=== PATIENT | male | born 1970 | race Caucasian/White ===

== ENCOUNTER 2025-07-20 12:27 | Emergency (ER) | payer MEDICARE ==
[~2025-07-20] VITALS: Ht 167.6 cm; Wt 72.7 kg
[~2025-07-20 12:27] MED LIST: ACET-2615 PO; ALPR-623 PO; OMEP20TA23 PO; ZOLP5TAB2 PO
[2025-07-20 12:32] VITALS: TEMP 97.8
--- NOTE | 2025-07-20 13:09 | RADIOLOGY REPORT ---
CHEST RADIOGRAPH Indication: SOB Technique: Single frontal view of the chest was obtained Comparison: None FINDINGS: Lines and Tubes: None Lungs: No focal consolidation. Pleura: No effusion. No pneumothorax. Cardiomediastinal contours: Unremarkable Bones: No acute osseous abnormality. IMPRESSION: 1. No acute cardiopulmonary disease.
[2025-07-20 13:34] LABS: MEAN PLATELET VOLUME 7.6 FL (7.4-10.4); RED CELL DISTRIBUTION WIDTH 14.1 % (11.5-14.5)
[2025-07-20 13:45] LABS: INR 1.0 INR
[2025-07-20 13:55] LABS: CREATININE 1.08 MG/DL (0.60-1.10); PRO BRAIN NATRIURETIC PEPTIDE < 30 PG/ML (0-125); TOTAL CARBON DIOXIDE 27.7 MMOL/L (24-32); eCRCL 69 ML/MIN; eGFR 71 ML/MIN
[2025-07-20 15:10] VITALS: BP 143/90; PULSE 70; RESP 18; O2SAT 98
--- NOTE | 2025-07-20 15:15 | Physician Documentation ---
History of Present Illness ~ Chief Complaint: Cough Stated Complaint: COUGH Time Seen by MD: 12:47 Primary Medical Doctor: ANNABEL LANGSTON HPI Is a very pleasant 54-year-old male that presents to the emergency department for evaluation of cough with mucus production. Reports he has had a productive cough for the last several days. Patient reports he has a history of pneumonia. He is concerned about developing pneumonia. Patient denies any shortness of breath she has a cough with productive green sputum. Patient denies fevers chills nausea vomiting diarrhea at this time. Medication Reconciliation Allergies: Coded Allergies: prochlorperazine (Verified Allergy, Unknown, 07/20/25) Scheduled Acetaminophen (Tylenol Extra Strength), 1 TAB PO Q8H, (Reported) Alprazolam* (Xanax*), 1 TAB PO QDAY PRN, (Reported) Omeprazole Magnesium (Prilosec Otc), 0.5 TAB PO DAILY, (Reported) Scheduled PRN Zolpidem Tartrate (Ambien), 5 MG PO HS PRN for sleep, (Reported) Past Medical History Past Medical History: *GI/HEPATOBILIARY* Past Surgical History: colectomy, other Alcohol Use: Occasionally Drug Use: none Lives with: Family Lives In: Home Occupation: disabled Review of Systems ROS As stated above in the HPI, otherwise all systems are reviewed and negative. Physical Exam Vital Signs: Temperature: 97.8, Source: Temporal, Heart Rate: 73, Respiratory Rate: 18, BP: 143/89, Pulse Oximetry: 97, Weight: 72.730 Oxygen Flow Rate: 0 Physical Exam VITALS: Reviewed and as above. GENERAL: Alert, no apparent distress. HEENT: Normocephalic, atraumatic, PERRL, EOMI, dry mucosa, no erythema RESPIRATORY: Lungs clear, normal breath sounds, no respiratory distress. CHEST: No accessory muscle use, no retractions CV: Regular rate, rhythm, no edema, no murmur, No: JVD GI: Soft, non-tender, bowels sounds present, no rebound, guarding, or rigidity BACK: No CVA tenderness, or swelling MUSCULOSKELETAL No deformities, no edema SKIN: Warm and dry, no rash NEURO: Oriented x4, No motor or sensory deficit PSYCH: Normal mood and affect, no agitation Progress Results/Orders Results/Orders Vital Signs 07/20/25 07/20/25 07/20/25 12:32 13:00 14:06 Temp 97.8 Pulse 94 73 Resp 18 18 18 B/P (MAP) 158/82 143/89 (107) Pulse Ox 98 97 O2 Flow Rate 0 Laboratory Tests Test 07/20/25 13:17 White Blood Count 8.0 Red Blood Count 5.41 Hemoglobin 15.3 Hematocrit 44.5 Mean Corpuscular Volume 82.3 Mean Corpuscular Hemoglobin 28.3 Mean Corpuscular Hemoglobin Concent 34.4 Red Cell Distribution Width 14.1 Platelet Count 226 Mean Platelet Volume 7.6 Neutrophils (%) (Auto) 72.5 Lymphocytes (%) (Auto) 20.3 L Monocytes (%) (Auto) 5.4 Eosinophils (%) (Auto) 1.1 Basophils (%) (Auto) 0.7 Neutrophils # (Auto) 5.8 Lymphocytes # (Auto) 1.6 Monocytes # (Auto) 0.4 Eosinophils # (Auto) 0.1 Basophils # (Auto) 0.1 CBC Comment Prothrombin Time 10.7 INR International Normalized Ratio 1.0 Coagulation Comments Sodium Level 139 Potassium Level 3.9 Chloride Level 104 Carbon Dioxide Level 27.7 Anion Gap 7 L Blood Urea Nitrogen 6 L Creatinine 1.08 Estimated GFR/1.73 m2 71 BUN/Creatinine Ratio 5.6 L Glucose Level 96 Calcium Level 8.8 Pro-B-Type Natriuretic Peptide < 30 Albumin 3.8 Chemistry Comments Medical Decision Making Additional information obtaine: other Findings Patient evaluated in the emergency department for [presenting complaint]. X-ray imaging was performed and is negative for any acute or concerning findings at this time. No evidence of fracture, dislocation, or other emergent pathology was identified. Clinical assessment, including history and physical examination, did not reveal any red flag symptoms or findings requiring further emergent intervention. The most dangerous conditions have been ruled out based on current evaluation and imaging. The patient is clinically stable for discharge. Diagnostic uncertainty was discussed with the patient, including the limitations of current testing and the possibility of evolving symptoms. The patient was advised to monitor for any new or worsening symptoms and to seek prompt medical attention if these occur. No additional urgent diagnostic tests are pending at this time. All results have been reviewed and communicated. Outpatient follow-up is recommended with the patient's primary care provider for ongoing management and reassessment as needed. Discharge instructions provided, including return precautions and follow-up recommendations. Disposition: Discharged home in stable condition. Differential Dx:Considerations: Include: Allergic rhinitis, Influenza, Otitis media, Peritonsillar abscess, Pharyngitis-Diphtheria, Pharyngitis-Streptoccal, Pharyngitis-Viral, Pneumonia, Pnuemonitis, Sinusitis, URI, Other Departure Disposition: HOME / SELF CARE / HOMELESS Impression: Primary Impression: Cough Condition: Stable Additional Instructions: You have been evaluated today, and your X-ray did not show any concerning findings. This means there is no sign of fracture, dislocation, or other serious injury at this time. What to expect: You may still have pain, swelling, or discomfort. These symptoms often improve with rest, ice, and [id number] pain medicine like acetaminophen or ibuprofen (follow package instructions unless told otherwise). Most minor injuries and pain get better with time and gentle movement. Avoid activities that make your pain worse. When to seek medical attention: If you develop new or worsening pain, swelling, redness, or warmth. If you cannot move the affected area, or if you notice numbness, tingling, or weakness. If you have fever, chills, or any other symptoms that concern you. Follow-up: Schedule a follow-up visit with your primary care provider or as directed. If your pain does not improve in the next 1-2 weeks, or if symptoms get worse, further evaluation may be needed. Sometimes, additional imaging (like MRI or CT) is recommended if symptoms persist despite a normal X-ray. Other instructions: Take all medications as prescribed. Use ice packs for 15-20 minutes at a time, several times a day, to reduce swelling. Elevate the injured area if possible. Keep the area clean and dry if there are any wounds. If you have any questions or concerns, contact your healthcare provider or return to the emergency department. Thank you for trusting us with your care. Referrals: NO PRIMARY CARE PROVIDER (PCP) Education Educated: Patient Educated regarding: diagnosis, treatment, need for follow up Signature Scribe Signature: A Attestation: Scribed for Alex Metz by PEREZ Stinson . 07/20/25 15:15 ALEX METZ Jul 20, 2025 15:15
== END 2025-07-20 15:21 | disposition home or self-care (01) ==
LOC: ER 12:27
DX: R05.9 Cough, unspecified (principal); R06.02 Shortness of breath; Z88.8 Allergy status to other drugs, medicaments and biological substances; Z90.49 Acquired absence of other specified parts of digestive tract
CPT/HCPCS: 36415; 71045; 80048; 83880; 85025; 85610; 99284